=== PATIENT | female | born 1985 | race Caucasian/White ===

== ENCOUNTER 2022-11-25 22:41 | Emergency (ER) | payer MEDICAID, BC ==
[2022-11-25 22:55] VITALS: BP 160/88; PULSE 78
[2022-11-25] MEDS ORDERED: Erythromycin Base 0.5% Ophth Oint 1 GM Tube EYERT STA (22:55)
== END 2022-11-25 23:02 | disposition home or self-care (01) ==
LOC: MW.ED 22:41
DX: H10.9 Unspecified conjunctivitis (principal); E66.9 Obesity, unspecified; Z68.26 Body mass index [BMI] 26.0-26.9, adult; Z88.2 Allergy status to sulfonamides; Z88.5 Allergy status to narcotic agent; Z91.018 Allergy to other foods
CPT/HCPCS: 99283; A9270